=== PATIENT | female | born 1960 | race Two or more races ===

== ENCOUNTER 2018-04-18 05:59 | Day surgery (SDC) | payer OTHER, BC ==
[2018-04-18] MEDS ORDERED: PROPOFOL 40 ML (07:48)
[2018-04-18] MEDS ORDERED: LIDOCAINE 100 MG SYRINGE (07:48)
[2018-04-18] MEDS ORDERED: LABETALOL HCL 20MG INJ IV (08:00)
[2018-04-18] MEDS ORDERED: EPHEDrine SULFATE 50 MG/5 ML SYG IV (08:00)
[2018-04-18] MEDS ORDERED: OXYCODONE/ACETAMINOPHEN (5/325) TAB PO ×2 (08:00)
[2018-04-18] MEDS ORDERED: HYDROmorphONE 1 MG/5 ML IV SYRINGE IV ×3 (08:00)
[2018-04-18] MEDS ORDERED: hydrALAzine 20 MG INJ IV (08:00)
[2018-04-18] MEDS ORDERED: MIDAZOLAM 1 MG/ML 2 ML INJ IV (08:00)
[2018-04-18] MEDS ORDERED: ALBUTEROL 0.083% (NEB) 2.5 MG/3 ML AMP HHN (08:00)
[2018-04-18] MEDS ORDERED: ONDANSETRON 4 MG INJ IV (08:00)
[2018-04-18] MEDS ORDERED: IPRATROPIUM (NEB) 0.5 MG/2.5 ML AMP HHN (08:00)
[2018-04-18] MEDS ORDERED: MEPERIDINE 25 MG INJ IV (08:00)
[2018-04-18] MEDS ORDERED: DIPHENHYDRAMINE 50 MG INJ IV (08:00)
[2018-04-18] MEDS ORDERED: FENTAnyl 50 MCG/ML VIAL IV ×3 (08:00)
[2018-04-18] MEDS ORDERED: TRIMETHOBENZAMIDE 100 MG/ML VIAL IM (08:00)
== END 2018-04-18 16:44 | disposition home or self-care (01) ==
LOC: GIL 05:59
DX: Z12.11 Encounter for screening for malignant neoplasm of colon (principal); K64.0 First degree hemorrhoids; I10 Essential (primary) hypertension; E11.9 Type 2 diabetes mellitus without complications
CPT/HCPCS: 45378; 82962